=== PATIENT | male | born 1980 | race Native Hawaiian/Other Pacific Islander ===

== ENCOUNTER 2020-07-05 12:37 | Outpatient (CLI) | payer BC, OTHER | END 2020-07-05 16:00 | disposition home or self-care (01) | LOC: INF 12:37 | PROVIDERS: ATTEND Internal Medicine | DX: Z23 Encounter for immunization (principal) | CPT/HCPCS: 96372 ==

== ENCOUNTER 2020-07-29 14:03 | Outpatient (CLI) | payer BC, OTHER | END 2020-07-29 23:59 | disposition home or self-care (01) | LOC: INF 14:03 | PROVIDERS: ATTEND Internal Medicine | DX: Z23 Encounter for immunization (principal) | CPT/HCPCS: 96372 ==